=== PATIENT | female | born 1960 | race Caucasian/White ===

== ENCOUNTER → 2017-04-29 | Outpatient (CLI) | payer BC | LOC: COL.RAD 11:13 | DX: K75.4 Autoimmune hepatitis (principal); K51.90 Ulcerative colitis, unspecified, without complications; R79.89 Other specified abnormal findings of blood chemistry ==

== ENCOUNTER → 2018-05-05 | Outpatient (CLI) | payer BC | LOC: COL.RAD 10:29 | DX: K75.4 Autoimmune hepatitis (principal); K51.90 Ulcerative colitis, unspecified, without complications ==

== ENCOUNTER → 2019-05-11 | Outpatient (CLI) | payer BC | LOC: COL.RAD 09:45 | DX: K75.4 Autoimmune hepatitis (principal); E03.9 Hypothyroidism, unspecified ==

== ENCOUNTER 2021-07-21 10:19 | Day surgery (SDC) | payer BC ==
[~2021-07-21] VITALS: Ht 157.5 cm; Wt 86.6 kg
[2021-07-21] MEDS ORDERED: AZULFIDINE500 MG/TAB PO (11:02)
[2021-07-21] MEDS ORDERED: TIROSINT75 MC1 PO (11:03)
[2021-07-21] MEDS ORDERED: TENORMIN 5050 MG/TAB PO (11:03)
[2021-07-21] MEDS ORDERED: PRIL40 PO (11:04)
[2021-07-21] MEDS ORDERED: NORVASC 5MG5 MG/TAB PO (11:04)
[2021-07-21] MEDS ORDERED: ASPIRIN E.C. 8181 MG PO (11:05)
[2021-07-21 12:13] VITALS: BP 144/75; PULSE 52; TEMP 97.3
[2021-07-21 13:35] VITALS: BP 125/60; PULSE 58
--- NOTE | 2021-07-21 13:35 | NUR ---
Pt to [facility] via cart from ENDO. Pt drowsy, but awake. Denies pain or nausea. Pt ambulates to recliner with stand by assistance x2. in room. Will continue to monitor. Call light within reach.
[2021-07-21 13:50] VITALS: BP 121/73; PULSE 55
--- NOTE | 2021-07-21 13:50 | NUR ---
Pt continues to rest. Denies needs. Call light within reach.
[2021-07-21 14:05] VITALS: BP 152/70; PULSE 58
--- NOTE | 2021-07-21 14:05 | NUR ---
Discharge instructions reviewed. Pt voices understanding. IV site discontinued with all parts intact. Pt up to dress. Call light within reach.
--- NOTE | 2021-07-21 14:15 | NUR ---
Pt escorted to private car via wheel chair. Pt accompanied home by her .
== END 2021-07-21 14:15 | disposition home or self-care (01) ==
LOC: SDCO 10:19
DX: K51.90 Ulcerative colitis, unspecified, without complications (principal); K64.1 Second degree hemorrhoids; K57.30 Diverticulosis of large intestine without perforation or abscess without bleeding; R19.5 Other fecal abnormalities; K21.9 Gastro-esophageal reflux disease without esophagitis; K75.4 Autoimmune hepatitis; E03.9 Hypothyroidism, unspecified; Z79.890 Hormone replacement therapy; Z79.899 Other long term (current) drug therapy
CPT/HCPCS: J7030

== ENCOUNTER → 2021-07-21 | Outpatient (CLI) | payer BC ==
[~2021-07-21] MED LIST: ASPIRIN E.C. 8181 MG PO; AZULFIDINE500 MG/TAB PO; NORVASC 5MG5 MG/TAB PO; PRIL40 PO; TENORMIN 5050 MG/TAB PO; TIROSINT75 MC1 PO
== END ==
LOC: COL.RAD 10:11
DX: K75.4 Autoimmune hepatitis (principal); K51.919 Ulcerative colitis, unspecified with unspecified complications